=== PATIENT | female | born 1985 | race Caucasian/White ===

== ENCOUNTER 2018-01-24 11:14 | Emergency (ER) | payer OTHER ==
[~2018-01-24] VITALS: Ht 165.1 cm; Wt 78.8 kg
--- NOTE | 2018-01-24 11:24 | PHYS DOC ---
Adult General Chief Complaint Chief Complaint: SEIZURE HPI HPI Patient is a 32 year old female who presents with seizure. Patient had 2 seizures this morning, one witnessed by EMS. She is being evaluated for seizure disorder and has recently been started on Keppra 500 mg 3 times a day. This has improved this seizure activity which started approximately a month ago but has not entirely eliminated it. EMS witnessed a seizure while in their rig, and administered first said. They report that the seizure lasted approximately 15 seconds. Patient reports having a headache, no problems seeing, no nausea or vomiting. Diffuse muscle aches. Denies any head trauma, more of a generalized headache. Not worst headache of life. No fevers. The discomfort is moderate in intensity. [] Review of Systems Review of Systems Constitutional: Denies fever or chills [] Eyes: Denies change in visual acuity, redness, or eye pain [] HENT: Denies nasal congestion or sore throat [] Respiratory: Denies cough or shortness of breath [] Cardiovascular: No chest pain or palpitations[] GI: Denies abdominal pain, nausea, vomiting, bloody stools or diarrhea [] : Denies dysuria or hematuria [] Musculoskeletal: Denies back pain or joint pain [] Integument: Denies rash or skin lesions [] Neurologic: See history of present illness[] Endocrine: Denies polyuria or polydipsia [] All other systems were reviewed and found to be within normal limits, except as documented in this note. Physical Exam Physical Exam Constitutional: Well developed, well nourished, no acute distress, slow to answer[] HENT: Normocephalic, atraumatic, bilateral external ears normal, oropharynx moist, no oral exudates, nose normal. [] Eyes: PERRLA, EOMI, conjunctiva normal, no discharge. [] Neck: Normal range of motion, no tenderness, supple, no stridor. [] Cardiovascular:Heart rate regular rhythm, no murmur [] Lungs & Thorax: Bilateral breath sounds clear to auscultation [] Abdomen: Bowel sounds normal, soft, no tenderness, no masses, no pulsatile masses. [] Skin: Warm, dry, no erythema, no rash. [] Back: No tenderness, no CVA tenderness. [] Extremities: No tenderness, no cyanosis, no clubbing, ROM intact, no edema. [] Neurologic: Alert and oriented X 3, normal motor function, normal sensory function, no focal deficits noted. [] Psychologic: Affect normal, judgement normal, mood normal. [] EKG EKG EKG shows a sinus rhythm, right axis, 139, QTc of 441 ms, no prolonged terminal 40 ms QRS prolongation in lead ER. No ST elevation[] Radiology/Procedures Radiology/Procedures CT scan of the head shows no acute features[] Course & Med Decision Making Course & Med Decision Making Pertinent Labs and Imaging studies reviewed. (See chart for details) ED course: Patient arrived, was placed in bed, in tolerated exam well. Patient was transported to and from [place] without any complications. After returning from CT she had an episode of emesis and brief seizure activity. Patient was given IV Zofran as well as Ativan to help with the nausea as well as prevent additional seizure activity. Due to the recurrence of seizures so frequently consultation is being made with neurology as well as the hospitalist service at [facility] for possibility of admission for EEG and further studies. Medical decision making: No evidence of a prolonged QTc that is the seizure trigger, no evidence of eclampsia, patient is not . No evidence of intracranial mass or bleed. Uncertain about alcohol withdrawal as the trigger for these seizures, patient reports that she does binge drink with her last drink being 3 days ago with several beers and a couple shots. Patient denies any other drugs of abuse however concerned because her urine drug screen is positive for cocaine.[] Dragon Disclaimer Dragon Disclaimer This electronic medical record was generated, in whole or in part, using a voice recognition dictation system. LUCI BOOGIE DO Jan 24, 2018 11:24
[2018-01-24 11:36] LABS: BASO # 0.1 x10^3/uL (0.0-0.2); BASO % 1 % (0-3); EOS # 0.1 x10^3/uL (0.0-0.7); EOS % 1 % (0-3); LYMPH % 16 % (24-48); MEAN CORPUSCULAR HEMOGLOBIN 30 pg (25-35); MEAN CORPUSCULAR HGB CONC 34 g/dL (31-37); MEAN CORPUSCULAR VOLUME 88 fL (79-100); MONO # 0.4 x10^3/uL (0.0-1.1); MONO % 4 % (0-9); NEUT # 9.7 x10^3uL (1.8-7.7); NEUT % 79 % (31-73); PLATELET COUNT 370 x10^3/uL (140-400); RED BLOOD COUNT 4.64 x10^6/uL (3.50-5.40); RED CELL DISTRIBUTION WIDTH 13.3 % (11.5-14.5); WHITE BLOOD COUNT 12.3 x10^3/uL (4.0-11.0)
[2018-01-24 11:44] LABS: CALCIUM 9.3 mg/dL (8.5-10.1); CREATININE 0.8 mg/dL (0.6-1.0); GFR 82.6; POTASSIUM 3.6 mmol/L (3.5-5.1)
--- NOTE | 2018-01-24 11:47 | EKG ---
[address] [address] Test Date: 2018-01-24 Test Time: 11:41:20 Pat Name: ROM MANUEL Department: Room: Gender: F Telecommunications Engineer: : [id number] Requested By: LUCI BOOGIE Order Number: [id number] Reading MD: Gallito Huang MD Measurements Intervals [place] Rate: 94 P: 158 IN: 146 QRS: 139 QRSD: 80 T: 143 QT: 348 QTc: 441 Interpretive Statements SINUS RHYTHM LIMB LEAD MISPLACEMENT Electronically Signed On 01-25-2018 8:28:20 [employer]ER by Gallito Huang MD
[2018-01-24 11:52] LABS: AMPHETAMINE/METHAMPHETAMINE NEG (NEG); BARBITURATES NEG (NEG); BENZODIAZEPINES NEG (NEG); CANNABINOIDS NEG (NEG); COCAINE POS (NEG); METHADONE NEG (NEG); OPIATES NEG (NEG); PHENCYCLIDINE NEG (NEG)
[2018-01-24] MEDS ORDERED: ONDANSETRON PF 4 MG/2 ML VIAL. ONE (11:53)
--- NOTE | 2018-01-24 11:53 | RAD ---
CT Head without contrast 01/24/2018 Clinical Indication: Seizure Comparison: None Technique: Multiple CT images of the head were obtained without contrast. *One or more of the following individualized dose reduction techniques were utilized for this examination: 1. Automated exposure control. 2. Adjustment of the mA and/or kV according to patient size. 3. Use of iterative reconstruction technique. Findings: Ventricles and subarachnoid spaces are normal in size and configuration for age. No acute intracranial hemorrhage or extra-axial fluid collection. The quevedo-white matter interfaces are maintained. No midline shift. The basal cisterns are patent. The visualized mastoid air cells and paranasal sinuses are well aerated. Impression: No acute intracranial hemorrhage. Electronically signed by: Rivera Betancourt MD (01/24/2018 11:49 AM) [facility]
[2018-01-24] MEDS ORDERED: LORazepam 2 MG/ML VIAL IV ONE (12:00)
[2018-01-24] MEDS ORDERED: ONDANSETRON PF 4 MG/2 ML VIAL. IV ONE (12:00)
[2018-01-24 12:16] LABS: BILIRUBIN,URINE NEG (NEG); CLARITY,URINE CLEAR; COLOR,URINE STRAW; GLUCOSE,URINE NEG (NEG); NITRITE,URINE NEG (NEG); UROBILINOGEN,URINE 0.2 mg/dL (0.2 mg/dL)
[2018-01-24 12:17] LABS: BACTERIA,URINE 0 /HPF (0-FEW); SQUAMOUS EPITHELIAL CELL,UR OCC /LPF; WBC,URINE RARE /HPF (0-4)
[2018-01-24 14:18] VITALS: BP 120/74
== END 2018-01-24 14:33 | disposition short-term general hospital (02) ==
LOC: ER 11:14
DX: G40.909 Epilepsy, unspecified, not intractable, without status epilepticus (principal)
CPT/HCPCS: 36415; 70450; 80048; 80177; 80307; 81001; 81025; 85025; 93005; 96365; 96375; 99285; G0480; J1953; J2060; J2405

== ENCOUNTER 2018-01-29 05:46 | Emergency (ER) | payer OTHER ==
[~2018-01-29] VITALS: Ht 172.7 cm; Wt 77.1 kg
[2018-01-29 06:02] VITALS: BP 149/94
--- NOTE | 2018-01-29 06:11 | PHYS DOC ---
Past History Past Medical History: Seizure Past Surgical History: No Surgical History Alcohol Use: Heavy Drug Use: Cocaine Adult General Chief Complaint Chief Complaint: SEIZURE HPI HPI Patient is a 32 year old female who is brought in by EMS because of seizure. Patient has history of cocaine abuse and new D diagnosis seizure with recent hospitalization at [facility] with increased the dose of Keppra and acting Atrovent to her current medication. Patient had used cocaine and alcohol last night. Patient reported that she had 3 episodes of seizures this morning. The first seizure. was a period of blinking eyes and the second one was a grand mal seizure that lasted about 45 second and third one was blinking eyes and loss of consciousness without fall. Patient refused to talk but pointed to her head with complaining of headache and rated her pain 7. Patient is not in postictal condition. Patient denies . Review of Systems Review of Systems Constitutional: Denies fever or chills [] Eyes: Denies change in visual acuity, redness, or eye pain [] HENT: Denies nasal congestion or sore throat [] Respiratory: Denies cough or shortness of breath [] Cardiovascular: No additional information not addressed in HPI [] GI: Denies abdominal pain, nausea, vomiting, bloody stools or diarrhea [] : Denies dysuria or hematuria [] Musculoskeletal: Denies back pain or joint pain [] Integument: Denies rash or skin lesions [] Neurologic: Reports headache, focal weakness or sensory changes [] Endocrine: Denies polyuria or polydipsia [] All other systems were reviewed and found to be within normal limits, except as documented in this note. Current Medications Current Medications Current Medications Medications (Trade) Dose Ordered Sig/Lupe Start Time Stop Time Status Last Admin Dose Admin Sodium Chloride 1,000 ml @ 1,000 mls/hr 1X ONCE 01/29/18 06:15 01/29/18 07:14 UNV Allergies Allergies Allergies Coded Allergies Type Severity Reaction Last Updated Verified No Known Drug Allergies 01/24/18 No Physical Exam Physical Exam Constitutional: Well developed, well nourished, mild distress, non-toxic appearance. [] HENT: Normocephalic, atraumatic, oropharynx moist, no oral exudates, nose normal. [] Eyes: PERRLA, EOMI, conjunctiva normal, no discharge. [] Neck: Normal range of motion, no tenderness, supple, no stridor. [] Cardiovascular: Tachycardia, no murmur [] Lungs & Thorax: Bilateral breath sounds clear to auscultation [] Abdomen: Bowel sounds normal, soft, no tenderness, no masses, no pulsatile masses. [] Skin: Warm, dry, no erythema, no rash. [] Back: No tenderness, no CVA tenderness. [] Extremities: No tenderness, no cyanosis, no clubbing, ROM intact, no edema. [] Neurologic: Alert and oriented X 3, normal motor function, normal sensory function, no focal deficits noted. [] Psychologic: Affect anxious, intentionally does not talk, denies suicidal ideation EKG EKG [] Radiology/Procedures Radiology/Procedures [] Course & Med Decision Making Course & Med Decision Making Pertinent Labs reviewed. (See chart for details) Evaluation of patient in ER showed 32-year-old female patient brought in by EMS because of several episodes of seizure this morning and using alcohol and cocaine. Patient was mute at writing answers of the questions and denied suicidal and homicidal ideation. Patient refuses hospitalization and signed AGAINST MEDICAL ADVICE. Patient instructed to follow-up with her neurologist today. Patient and her son were in her bedside and feeling comfortable to take her home. Patient refuses referral to rehabilitation. Dragon Disclaimer Dragon Disclaimer This electronic medical record was generated, in whole or in part, using a voice recognition dictation system. Departure Departure: Impression: Primary Impression: Seizure Additional Impressions: Cocaine abuse with cocaine-induced anxiety disorder Alcohol abuse Conversion muteness Disposition: 07 AGAINST MEDICAL ADVICE (At 0743) Condition: IMPROVED Referrals: JUNIOR GALO PA-C (PCP) FREDY WHITTAKER MD Patient Instructions: Alcohol Problems, Cocaine Abuse and Chemical Dependency, Seizure, Adult Additional Instructions: Follow up with Dr Whittaker today Stop using cocaine and alcohol Problem Qualifiers PEBBLES LYMAN MD Jan 29, 2018 06:11
[2018-01-29] MEDS ORDERED: IV NORMAL SALINE 1,000ML 1,000 ML IV ONE (06:30)
[2018-01-29 06:35] LABS: PREG TEST PT QUAL NEGATIVE (NEG)
[2018-01-29 06:38] LABS: BASO # 0.1 x10^3/uL (0.0-0.2); BASO % 1 % (0-3); EOS # 0.1 x10^3/uL (0.0-0.7); EOS % 1 % (0-3); HEMATOCRIT 40.7 % (36.0-47.0); LYMPH # 2.7 x10^3/uL (1.0-4.8); LYMPH % 19 % (24-48); MEAN CORPUSCULAR HEMOGLOBIN 30 pg (25-35); MEAN CORPUSCULAR HGB CONC 34 g/dL (31-37); MEAN CORPUSCULAR VOLUME 89 fL (79-100); MONO # 0.4 x10^3/uL (0.0-1.1); MONO % 3 % (0-9); NEUT # 10.9 x10^3uL (1.8-7.7); NEUT % 77 % (31-73); PLATELET COUNT 353 x10^3/uL (140-400); RED BLOOD COUNT 4.59 x10^6/uL (3.50-5.40); RED CELL DISTRIBUTION WIDTH 13.6 % (11.5-14.5); WHITE BLOOD COUNT 14.1 x10^3/uL (4.0-11.0)
[2018-01-29 06:42] LABS: ALBUMIN 4.4 g/dL (3.4-5.0); ALBUMIN/GLOBULIN RATIO 1.2 (1.0-1.7); CALCIUM 9.1 mg/dL (8.5-10.1); CREATININE 0.8 mg/dL (0.6-1.0); GFR 82.6; POTASSIUM 3.7 mmol/L (3.5-5.1); TOTAL BILIRUBIN 0.2 mg/dL (0.2-1.0)
[2018-01-29 06:47] LABS: AMPHETAMINE/METHAMPHETAMINE NEG (NEG); BARBITURATES NEG (NEG); BENZODIAZEPINES NEG (NEG); CANNABINOIDS NEG (NEG); COCAINE POS (NEG); METHADONE NEG (NEG); OPIATES NEG (NEG); PHENCYCLIDINE NEG (NEG)
[2018-01-29 07:04] LABS: BACTERIA,URINE 0 /HPF (0-FEW); BILIRUBIN,URINE NEG (NEG); CLARITY,URINE CLEAR; COLOR,URINE STRAW; GLUCOSE,URINE NEG (NEG); NITRITE,URINE NEG (NEG); RBC,URINE 0 /HPF (0-2); SQUAMOUS EPITHELIAL CELL,UR FEW /LPF; UROBILINOGEN,URINE 0.2 mg/dL (0.2 mg/dL); WBC,URINE 0 /HPF (0-4)
[2018-01-29] MEDS ORDERED: KETOROLAC 30 MG/ML VIAL. IV ONE (07:45)
== END 2018-01-29 08:00 | disposition left against medical advice (07) ==
LOC: ER 05:46
DX: G40.89 Other seizures (principal); R55 Syncope and collapse; F14.180 Cocaine abuse with cocaine-induced anxiety disorder; F10.20 Alcohol dependence, uncomplicated; F44.89 Other dissociative and conversion disorders; Y90.1 Blood alcohol level of 20-39 mg/100 ml
CPT/HCPCS: 36415; 80053; 80307; 81001; 84703; 85025; 96361; 96374; 99283; G0480; J1885; J7030

== ENCOUNTER 2020-04-01 01:09 | Emergency (ER) | payer SELFPAY ==
[~2020-04-01] VITALS: Ht 165.1 cm; Wt 69.3 kg
--- NOTE | 2020-04-01 01:29 | PHYS DOC ---
Past History Past Medical History: Seizure Past Surgical History: No Surgical History Alcohol Use: Occasionally Drug Use: Cocaine Adult General Chief Complaint Chief Complaint: CHEST PAIN HPI HPI Patient is a 34-year-old female who presents with a chief complaint of chest pain. States she went out to walk her dog couple hours before coming to the emergency department was walking up the hill and began to have sharp, substernal chest pain, 6 out of 10, relatively constant in nature with no radiation. States she had really had anything like this before. States yesterday she did do some cocaine and drank alcohol. Denies any other drug use. Denies any recent travel, illnesses, fevers, headache, shortness of breath, abdominal pain, nausea, vomiting, dysuria, hematuria or blood in the stool. Denies any Covid/flu symptoms or known contacts. Denies any dyspnea on exertion, orthopnea, PND or edema. Denies any history of DVT/PE Review of Systems Review of Systems Review of systems otherwise unremarkable except noted in HPI Allergies Allergies Allergies Coded Allergies Type Severity Reaction Last Updated Verified No Known Drug Allergies 01/24/18 No Physical Exam Physical Exam Constitutional: Well developed, well nourished, no acute distress, non-toxic appearance. [] HENT: Normocephalic, atraumatic, bilateral external ears normal, oropharynx moist, no oral exudates, nose normal. [] Eyes: conjunctiva normal, no discharge. [] Neck: Normal range of motion, no tenderness, supple, no stridor. [] Cardiovascular: Tachycardia, regular rhythm no murmur Lungs & Thorax: Bilateral breath sounds clear to auscultation [] Abdomen: soft, no tenderness, no masses, no pulsatile masses. [] Skin: Warm, dry, no erythema, no rash. [] Back: No tenderness Extremities: No tenderness, no cyanosis, no clubbing, ROM intact, no edema. [] Neurologic: Alert and oriented X 3, normal motor function, normal sensory function, no focal deficits noted. [] Psychologic: Affect normal, judgement normal, mood normal. [] Current Patient Data Lab Results Laboratory Tests Test 04/01/20 01:31 04/01/20 02:10 04/01/20 02:22 White Blood Count 13.0 x10^3/uL (4.0-11.0) Red Blood Count 4.85 x10^6/uL (3.50-5.40) Hemoglobin 14.6 g/dL (12.0-15.5) Hematocrit 43.6 % (36.0-47.0) Mean Corpuscular Volume 90 fL (79-100) Mean Corpuscular Hemoglobin 30 pg (25-35) Mean Corpuscular Hemoglobin Concent 33 g/dL (31-37) Red Cell Distribution Width 12.9 % (11.5-14.5) Platelet Count 359 x10^3/uL (140-400) Neutrophils (%) (Auto) 66 % (31-73) Lymphocytes (%) (Auto) 22 % (24-48) Monocytes (%) (Auto) 5 % (0-9) Eosinophils (%) (Auto) 7 % (0-3) Basophils (%) (Auto) 1 % (0-3) Neutrophils # (Auto) 8.6 x10^3uL (1.8-7.7) Lymphocytes # (Auto) 2.8 x10^3/uL (1.0-4.8) Monocytes # (Auto) 0.6 x10^3/uL (0.0-1.1) Eosinophils # (Auto) 0.9 x10^3/uL (0.0-0.7) Basophils # (Auto) 0.1 x10^3/uL (0.0-0.2) Troponin I Quantitative < 0.017 ng/mL (0-0.055) Urine Collection Type Unknown Urine Color Yellow Urine Clarity Cloudy Urine pH 6.5 Urine Specific [place] 1.020 Urine Protein Neg (NEG-TRACE) Urine Glucose (UA) Neg mg/dL (NEG) Urine Ketones (Stick) Neg mg/dL (NEG) Urine Blood Mod (NEG) Urine Nitrite Neg (NEG) Urine Bilirubin Neg (NEG) Urine Urobilinogen Dipstick 0.2 mg/dL (0.2 mg/dL) Urine Leukocyte Esterase Neg (NEG) Urine RBC 6-10 /HPF (0-2) Urine WBC Rare /HPF (0-4) Urine Squamous Epithelial Cells Mod /LPF Urine Bacteria Few /HPF (0-FEW) Urine Hyaline Casts Occ /HPF Urine Mucus Slight /LPF Urine Opiates Screen Neg (NEG) Urine Methadone Screen Neg (NEG) Urine Barbiturates Neg (NEG) Urine Phencyclidine Screen Neg (NEG) Urine Amphetamine/Methamphetamine Neg (NEG) Urine Benzodiazepines Screen Neg (NEG) Urine Cocaine Screen Pos (NEG) Urine Cannabinoids Screen Neg (NEG) Urine Ethyl Alcohol Neg (NEG) Bedside Urine HCG, Qualitative hcg negative (Negative) EKG EKG Rate of 118, QRS of 80, QTc of 504, no STEMI, sinus tachycardia [] Radiology/Procedures Radiology/Procedures [] Heart Score HEART Score for Chest Pain: HEART Score for Chest Pain Response (Comments) Value History Slighlty/Non-Suspicious 0 ECG Normal 0 Age < 45 0 Risk Factors 1 or 2 Risk Factors 1 Troponin < Normal Limit 0 Total 1 Risk Factors: Risk Factors: DM, Current or recent (<one month) smoker, HTN, HLP, family history of CAD, obesity. Risk Scores: Risk Factors: DM, Current or recent (<one month) smoker, HTN, HLP, family history of CAD, obesity. Course & Med Decision Making Course & Med Decision Making Patient is a 34-year-old female who presents with chest pain sometime after doing cocaine and drinking alcohol Vital signs notable for tachycardia and hypertension. Physical exam noted abov e. Patient placed on the monitor with IV access established and IV fluid began. Given benzodiazepine. EKG noted above with no STEMI. Troponin normal. Laboratory analysis not concerning. On reassessment patient stated she felt 100% better and was ready to go home. Vital signs significantly improved. Patient fell asleep in the room and was able to take p.o. Discussed all findings with patient and advised no more cocaine especially when drinking alcohol and cut back on alcohol. Advised to follow-up with primary care physician. Advised [place] to the ED with new or concerning symptoms. Patient grateful, verbalized understanding and agreed with plan of discharge. [] Dragon Disclaimer Dragon Disclaimer This electronic medical record was generated, in whole or in part, using a voice recognition dictation system. Departure Departure: Impression: Primary Impression: Chest pain Additional Impression: Cocaine abuse Disposition: 01 DC HOME SELF CARE/HOMELESS Condition: GOOD Referrals: JUNIOR GALO PA-C (PCP) Patient Instructions: Chest Pain (Nonspecific), Ujqa-uh-Ssce, Cocaine Abuse- Brief Additional Instructions: Please read all the attached information. As discussed cut back on the alcohol and quit the cocaine. Please do not mix this to together anymore. Please follow-up with your primary care physician as soon as you can to update on ED visit. Please come back to the ED with new or concerning symptoms. Problem Qualifiers ARACELI ZAMORA MD Apr 01, 2020 01:29
[2020-04-01 01:46] LABS: BASO # 0.1 x10^3/uL (0.0-0.2); BASO % 1 % (0-3); EOS # 0.9 x10^3/uL (0.0-0.7); EOS % 7 % (0-3); HEMATOCRIT 43.6 % (36.0-47.0); HEMOGLOBIN 14.6 g/dL (12.0-15.5); LYMPH # 2.8 x10^3/uL (1.0-4.8); LYMPH % 22 % (24-48); MEAN CORPUSCULAR HEMOGLOBIN 30 pg (25-35); MEAN CORPUSCULAR HGB CONC 33 g/dL (31-37); MEAN CORPUSCULAR VOLUME 90 fL (79-100); MONO # 0.6 x10^3/uL (0.0-1.1); MONO % 5 % (0-9); NEUT # 8.6 x10^3uL (1.8-7.7); NEUT % 66 % (31-73); PLATELET COUNT 359 x10^3/uL (140-400); RED BLOOD COUNT 4.85 x10^6/uL (3.50-5.40); RED CELL DISTRIBUTION WIDTH 12.9 % (11.5-14.5)
[2020-04-01] MEDS ORDERED: IV RINGERS SOLUTION,LACTATED 1,000 ML IV ONE (02:00)
[2020-04-01] MEDS ORDERED: MIDAZOLAM HCL PF 5 MG/5 ML VIAL. IV ONE (02:00)
[2020-04-01 02:54] LABS: AMPHETAMINE/METHAMPHETAMINE NEG (NEG); BARBITURATES NEG (NEG); BENZODIAZEPINES NEG (NEG); CANNABINOIDS NEG (NEG); COCAINE POS (NEG); METHADONE NEG (NEG); OPIATES NEG (NEG); PHENCYCLIDINE NEG (NEG)
[2020-04-01 03:07] LABS: BACTERIA,URINE FEW /HPF (0-FEW); BILIRUBIN,URINE NEG (NEG); CLARITY,URINE CLOUDY; COLOR,URINE YELLOW; GLUCOSE,URINE NEG (NEG); NITRITE,URINE NEG (NEG); SQUAMOUS EPITHELIAL CELL,UR MOD /LPF; UROBILINOGEN,URINE 0.2 mg/dL (0.2 mg/dL); WBC,URINE RARE /HPF (0-4)
[2020-04-01 03:08] LABS: HYALINE CASTS, URINE OCC /HPF
--- NOTE | 2020-04-01 03:11 | RAD ---
AP chest x-ray HISTORY: Chest pain. FINDINGS: Heart size normal. Mediastinal silhouette is normal. No pneumothorax, pulmonary opacities o r pleural effusions. Slight thoracic scoliosis. IMPRESSION: No acute process. Electronically signed by: Pavan Han MD (04/01/2020 3:04 AM) [facility]
[2020-04-01 03:14] VITALS: BP 142/89
--- NOTE | 2020-04-01 03:16 | EKG ---
[facility] ED [facility] [place] [id number] Test Date: 2020-04-01 Test Time: 01:18:11 Pat Name: ROM MANUEL Department: Room: Gender: F Commercial Agent: : [id number] Requested By: ARACELI ZAMORA Order Number: [id number] Reading MD: Measurements Intervals [place] Rate: 118 P: 264 VA: 104 QRS: 49 QRSD: 80 T: 48 QT: 358 QTc: 504 Interpretive Statements SINUS TACHYCARDIA OTHERWISE NORMAL ECG RI6.02 No previous ECG available for comparison
[2020-04-01 04:16] LABS: CALCIUM 9.7 mg/dL (8.5-10.1); GFR 63.1; POTASSIUM 3.8 mmol/L (3.5-5.1)
== END 2020-04-01 03:38 | disposition home or self-care (01) ==
LOC: ER 01:09
DX: R07.89 Other chest pain (principal); F14.10 Cocaine abuse, uncomplicated
CPT/HCPCS: 36415; 71045; 80048; 80307; 81001; 81025; 84484; 85025; 93005; 96361; 96374; 99285; J2250; J7120